=== PATIENT | male | born 1955 | race Caucasian/White ===

== ENCOUNTER 2019-08-18 14:13 | Inpatient (IN) ==
[2019-08-18] MEDS ORDERED: NS 1,000 ML ONE (14:29)
[2019-08-18] MEDS ORDERED: NS 1,000 ML IV ONE (14:49)
[2019-08-18] MEDS ORDERED: PROTONIX IV ONE (14:49)
[2019-08-18] MEDS ORDERED: SODIUM CHLORIDE 0.9% INJ ONE ×3 (14:49→19:48)
[2019-08-18] MEDS ORDERED: ZOFRAN IV ONE (14:51)
--- NOTE | 2019-08-18 14:58 | PROVIDER DOCUMENTATION ---
HPI-General Adult - General Chief Complaint: GI Bleed Stated Complaint: RECTAL BLEEDING Time Seen by Provider: 08/18/19 14:46 Source: patient Allergies/Adverse Reactions: Patient Allergies Allergy/AdvReac Type Severity Reaction Status Date / Time No Known Drug Allergies Allergy Unknown Verified 08/18/19 18:31 - History of Present Illness -Gen Adult Nature of Presenting Problems: 63 year old male presenting to the ED stating he became dizzy last night and layed down on the floor and was too weak to get up today. He was found by family today laying on the floor. The patient denies hitting his head or being on any blood thinners but does have a history of cirrhosis. He endorses coffee ground emesis and dark stools but cannot recall when it started. Review of Systems - Adult - REVIEW OF SYSTEMS - ADULT Constitutional: reports: fatique Eyes: reports: no symptoms reported Ears, Nose, Mouth & Throat: reports: no symptoms reported Cardiovascular: reports: no symptoms reported Respiratory: reports: hemoptysis Gastrointestinal: reports: abdominal pain, hematemesis, nausea, rectal bleeding, vomiting, other (bloating) Genitourinary: reports: no symptoms reported Musculoskeletal: reports: no symptoms reported Integumentary: reports: no symptoms reported Neurological: reports: ataxia, dizziness/vertigo Psychiatric: reports: alcohol/drug dependence (history of alcoholism) Endocrine: reports: no symptoms reported Hematologic/Lymphatic: reports: prolonged bleeding Allergic/Immunologic: reports: no symptoms reported All Other Systems: Reviewed and Negative Past History - Adult - PAST MEDICAL HISTORY-ADULT Review of Records: reports: Old Records Reviewed, Nursing Assessment Review, Medications Reviewed, Social history reviewed & non-contributory. - IMMUNIZATION STATUS Childhood Immunizations: See Nurse Assessment Flu Vaccine: See Nurse Assessment - FAMILY HISTORY Family History: reviewed, not pertinent - SOCIAL HISTORY Smoking: quit greater than 1 year Substance Use: alcohol (former alcoholic) Physical Exam-General - PHYSICAL EXAM-ADULT Initial Vital Signs Reviewed: Yes - CONSTITUTIONAL General Appearance: alert, mild distress - EYES Eyes: negative: scleral icterus - HEAD, EARS, NOSE, MOUTH & THROAT HENMT: other (coffee ground emesis visualized around the patient's mouth). negative: moist mucous membranes (dry mucous membranes) - NECK Neck: non-tender, full range of motion, supple - RESPIRATORY Respiratory: lungs clear, normal breath sounds - CARDIOVASCULAR Cardiovascular: regular rate, rhythm, no murmur. negative: tachycardia - GASTROINTESTINAL (ABDOMEN) Abdominal Exam: distended (Patient appears to have ascites with + fluid wave), hernia (2 large ventral wall hernia's that are both approximately the size of a softball and are non-reducable with some induration on the right side), other (melenotic stool on rectal examination) - MUSCULOSKELETAL Back Exam: normal inspection Extremity: normal range of motion, pelvis stable, swelling (non-pitting edema of the b/l LE's) Peripheral Pulses: radial (R): 2+, radial (L): 2+ - SKIN Integumentary: jaundice (miold) - NEUROLOGIC Neurologic: grossly normal - PSYCHIATRIC Psych/Mental Status: normal mood/affect, oriented x 3 Progress - PLAN OF CARE/RESULTS Progress/Plan/Lab Results: Vital Signs - 8 hr 08/18/19 14:28 Temperature 96.5 F L Pulse Rate 99 H Respiratory Rate 18 Blood Pressure 98/43 O2 Sat by Pulse Oximetry 100 Orders Category Date Time Status Saline Loc NOW Care 08/18/19 14:46 Ordered NPO Diet 08/18/19 14:[address] ABD/PELVIS W/IV CONT ONLY [CT] Stat Exams 08/18/19 14:48 Ordered CBC WITH DIFF [HEME] Stat Lab 08/18/19 14:47 Uncollected CK PROFILE [SP CHEM] Stat Lab 08/18/19 14:48 Ordered COMPREHENSIVE METABOLIC PANEL [CHEM] Stat Lab 08/18/19 14:47 Uncollected LACTATE, PLASMA [CHEM] Stat Lab 08/18/19 14:51 Uncollected LIPASE [CHEM] Stat Lab 08/18/19 14:47 Uncollected OCCULT BLOOD SCREENING [STOOL] Stat Lab 08/18/19 14:51 Uncollected URINALYSIS [URINALYSIS] Stat Lab 08/18/19 14:47 Uncollected 0.9% Sodium Chloride Inj [Ns] 1,000 ml Med 08/18/19 14:29 Discontinued .ROUTE As directed Ns 1000 ml IV Bolus X1 Med 08/18/19 14:49 Ordered 0.9% Sodium Chloride Inj [Ns] 1,000 ml IV 999 mls/hr Ondansetron [Zofran] Med 08/18/19 14:51 Once 4 mg IV NOW ONE Pantoprazole [Protonix] Med 08/18/19 14:49 Once 40 mg IV NOW ONE Sodium Chloride 0.9% Med 08/18/19 14:49 Once 10 ml INJ NOW ONE Abd Pain/OB <20 weeks Stat Oth 08/18/19 14:46 Ordered Result Diagrams: 08/18/19 18:02 08/18/19 14:58 - XRAY 1 XRAY Study: Chest Impression: Normal ( EXAM: CHEST-1 VIEW HISTORY: GIB with Dyspnea TECHNIQUE: Single view COMPARISON: None. FINDINGS: The lungs are well expanded. The heart is not enlarged. The vessels are not distended. There are no infiltrates. No effusion identified. IMPRESSION: Negative exam. Electronically signed by Jd Valladares 08/18/2019 5:35 PM 08/18/19 1735 Interpreting Physician: Jd Valladares MD Dictated Date/Time: 08/18/19 1731 cc: Mark Slater DO; None,PCP) - CT/MRI 1 CT Study: Abdomen Impression: Abnormal (EXAM: CT ABD/PELVIS W/IV CONT ONLY HISTORY: abdominal pain TECHNIQUE: CT abdomen and pelvis with intravenous contrast. COMPAR ISIDORO: None. FINDINGS: There is a small hiatal hernia and there is thickening to the wall of the distal esophagus. The liver is nodular and heterogeneous with multiple small scattered masses and a larger 7.5 cm mass in the right lobe. There is fatty infiltration of the liver. The spleen measures 6.6 x 13.0 x 12.4 cm. There are multiple stones within a contracted gallbladder. Normal pancreas. There is portal venous thrombosis with multiple large varices in the upper left abdomen. Normal adrenal glands and kidneys. No aortic aneurysm. Large amount of abdominal and pelvic ascites. No bowel obstruction. There is a right inguinal hernia and a large right-sided hydrocele. The prostate is not enlarged. The stomach is distended with fluid and debris. IMPRESSION: 1.Cirrhosis and likely hepatocellular carcinoma 2.Portal venous thrombosis 3.Cholelithiasis 4.Distended stomach with a small hiatal hernia and thickening to the wall of the distal esophagus 5.Large right hydrocele This exam was performed using automated exposure control, adjustment of mA or kV according to patient size, and/or use of iterative reconstruction technique. Electronically signed by Jd Valladares 08/18/2019 5:29 PM 08/18/19 9429 Interpreting Physician: Jd Valladares MD Dictated Date/Time: 08/18/19 1723 cc: Mark Slater DO; None,PCP) - CONSULTS/PCP/HOSPITALIST Notification #1 *Consult/PCP/Hospitalist*: Dr. Lowe Time Discussed: 17:10 (Admit to ICU ) Reason/Comments: GIB with symptomatic anemia. Consult Disposition: Admit (s/w Dr. Lowe, recommends c/s general surgery if CT shows ischemic bowel, if not he will plan for colonoscopy in the morning) #2 Consult: Spoke with Lynda Rosen, admit under the care of Dr. Arcos Time Discussed: 17:17 (Admit ICU) Reason/Comments: Shock, GIB, likely ischemic gut Consult Disposition: Admit #3 Consult: Dr. Anderson Time Discussed: 18:44 (Concern for ischemic bowel) Reason/Comments: Concern for ischemic bowel Consult Disposition: other (Will further evaluate the patient for concern of ischemic bowel once admitted to the hospital) Departure - Departure Date of Disposition Decision: 08/18/19 Time of Disposition Decision: 18:16 (Admit ICU) DIAGNOSIS: Shock, Lactic acidosis, Abdominal hernia, Symptomatic anemia, Hyperkalemia, Neutrophilic leukocytosis, PVT (portal vein thrombosis), Lower gastrointestinal bleed Cirrhosis Qualifiers: Hepatic cirrhosis type: unspecified hepatic cirrhosis Ascites presence: without ascites Qualified Code(s): K74.60 - Unspecified cirrhosis of liver Disposition: ADMITTED INPATIENT 09 Certified Medical Emergency: Emergent Condition: Critical Referrals and Follow-Ups: None,PCP [Primary Care Provider] - - Critical Care Note This patient required my direct & personal management of CC.: Yes Total Time (mins): 65 Critical Care Statement: This patient required my direct personal management to treat or rule out processes, the absence of which, could potentiallly result in sudden, clinically significant life or limb threatening deterioration. Attestation - Physician/ PHIL Attestation Patient care was provided by Advanced Practice Provider:: No The physician spent face to face time with patient:: Yes Advanced Practice Provider documentation review:: Supervising physician onsite and consulted in the evaluation and care of this patient. The physician did have a face to face encounter with the patient.
[2019-08-18 15:31] LABS: BASO# 0.04 X1000 (0.0-0.2); BASO% 0.2 % (0.0-0.8); EOS# 0.02 X1000 (0.0-0.7); EOS% 0.1 % (0.0-10.0); HEMATOCRIT 19.5 % (42.0-52.0); IMM GRAN# 0.56 X1000 (0.0-0.04); IMM GRAN% 2.7 % (0.0-0.5); LYMPH# 0.79 X1000 (1.2-3.4); LYMPH% 3.8 % (20.5-51.1); MCH 29.4 PG (27-31); MCHC 30.3 g/dL (33-37); MONO% 7.6 % (1.7-9.3); MPV 9.2 FL (7.4-10.4); NEUT# 17.97 X1000 (1.4-6.5); NEUT% 85.6 % (42.2-75.2); PLT 312 X1000 (130-400); RBC 2.01 XMIL (4.7-6.1); WBC 20.98 X1000 (4.8-10.8)
[2019-08-18 15:34] LABS: HEMOGLOBIN 5.9 g/dL (14.0-18.0)
[2019-08-18 15:38] LABS: INR 3.92; PROTIME 39.6 Seconds (11.0-16.0); PTT 39.4 Seconds (22.3-41.8)
[2019-08-18 15:51] LABS: ESTIMATED GFR > 60
[2019-08-18 16:07] LABS: AGAP 24; ALB/GLOB RATIO 0.7; ALBUMIN 1.9 g/dL (3.5-5.0); ALKALINE PHOSPHATASE 141 U/L (32-122); BUN 46 mg/dL (8-22); CALCIUM 8.1 mg/dL (8.8-10.2); CHLORIDE 108 mmol/L (98-107); COSMO 295; CREATININE 1.2 mg/dL (0.7-1.2); GLUCOSE 140 mg/dL (70-104); GOT 168 U/L (10-34); GPT 88 U/L (10-44); LIPASE 46 U/L (13-60); SODIUM 141 mmol/L (136-145); TCO2 9 mmol/L (25-35); TOTAL BILIRUBIN 1.42 mg/dL (0.20-1.00); TOTAL PROTEIN 4.8 g/dL (6.3-8.3)
[2019-08-18] MEDS ORDERED: SODIUM CHLORIDE IV ONE (16:14)
[2019-08-18 16:15] LABS: ANISOCYTOSIS 1+; BANDS 6 % (0-1); LARGE PLATELETS OCCASIONAL; LYMPHS 1 % (21-51); MONO 4 % (1-9); SEGS 89 % (42-75)
[2019-08-18] MEDS ORDERED: ATIVAN IV ONE (16:36)
[2019-08-18] MEDS ORDERED: SANDOSTATIN 500 MICROGM in D5W 100 ML IV STA (17:04)
--- NOTE | 2019-08-18 17:31 | Diag Imaging Result Doc PS360 ---
EXAM: CT ABD/PELVIS W/IV CONT ONLY HISTORY: abdominal pain TECHNIQUE: CT abdomen and pelvis with intravenous contrast. COMPARISON: None. FINDINGS: There is a small hiatal hernia and there is thickening to the wall of the distal esophagus. The liver is nodular and heterogeneous with multiple small scattered masses and a larger 7.5 cm mass in the right lobe. There is fatty infiltration of the liver. The spleen measures 6.6 x 13.0 x 12.4 cm. There are multiple stones within a contracted gallbladder. Normal pancreas. There is portal venous thrombosis with multiple large varices in the upper left abdomen. Normal adrenal glands and kidneys. No aortic aneurysm. Large amount of abdominal and pelvic ascites. No bowel obstruction. There is a right inguinal hernia and a large right-sided hydrocele. The prostate is not enlarged. The stomach is distended with fluid and debris. IMPRESSION: 1.Cirrhosis and likely hepatocellular carcinoma 2.Portal venous thrombosis 3.Cholelithiasis 4.Distended stomach with a small hiatal hernia and thickening to the wall of the distal esophagus 5.Large right hydrocele This exam was performed using automated exposure control, adjustment of mA or kV according to patient size, and/or use of iterative reconstruction technique. Electronically signed by Jd Valladares 08/18/2019 5:29 PM
--- NOTE | 2019-08-18 17:37 | Diag Imaging Result Doc PS360 ---
EXAM: CHEST-1 VIEW HISTORY: GIB with Dyspnea TECHNIQUE: Single view COMPARISON: None. FINDINGS: The lungs are well expanded. The heart is not enlarged. The vessels are not distended. There are no infiltrates. No effusion identified. IMPRESSION: Negative exam. Electronically signed by Jd Valladares 08/18/2019 5:35 PM
[2019-08-18] MEDS ORDERED: ZOSYN 3.375 GM in NS 50 ML IV SCH (18:15)
[2019-08-18] MEDS ORDERED: ALBUTEROL 0.5% INH CONC FOR HYPERKALEMIA INH ONE (18:16)
[2019-08-18 18:19] LABS: ALLEN TEST NO; BLOOD TYPE ARTERIAL; HCO3-(ACT) 9.4 mmoll (20.0-26.0); METHB 0.7 % (0.0-1.5); O2(CT) 7.7 mL/dL (15.0-23.0); O2HB 97.5 % (95.0-99.0); PO2(98.6) 120 mmHg (60-100); SAMPLE BLOOD; SAO2 100.8 % (95.0-100.0); THB 5.4 g/dL (11.5-17.4)
[2019-08-18] MEDS ORDERED: HUMULIN R SUBQ ONE (18:19)
[2019-08-18] MEDS ORDERED: D50W SYRINGE IV ONE (18:20)
[2019-08-18 18:22] LABS: MODALITY CANNULA; PCO2(98.6) 16 mmHg (35-45)
[2019-08-18 18:28] LABS: BASO# 0.07 X1000 (0.0-0.2); BASO% 0.3 % (0.0-0.8); EOS# 0.03 X1000 (0.0-0.7); EOS% 0.1 % (0.0-10.0); IMM GRAN# 0.75 X1000 (0.0-0.04); IMM GRAN% 3.5 % (0.0-0.5); LYMPH% 6.1 % (20.5-51.1); MONO# 1.23 X1000 (0.11-0.59); MONO% 5.7 % (1.7-9.3); MPV 9.2 FL (7.4-10.4); NEUT# 18.08 X1000 (1.4-6.5); NEUT% 84.3 % (42.2-75.2); RBC 1.74 XMIL (4.7-6.1); WBC 21.46 X1000 (4.8-10.8)
[2019-08-18 18:29] LABS: HEMATOCRIT 17.6 % (42.0-52.0); MCH 30.5 PG (27-31); MCHC 30.1 g/dL (33-37); MCV 101.1 FL (81-99); PLT 268 X1000 (130-400); RDW 18.6 % (11.5-14.5)
[2019-08-18 18:31] LABS: HEMOGLOBIN 5.3 g/dL (14.0-18.0)
[2019-08-18 18:42] LABS: ESTIMATED GFR > 60
[2019-08-18 18:43] LABS: AGAP 26; ALB/GLOB RATIO 0.7; ALBUMIN 1.7 g/dL (3.5-5.0); ALKALINE PHOSPHATASE 125 U/L (32-122); BUN 47 mg/dL (8-22); CALCIUM 7.9 mg/dL (8.8-10.2); CHLORIDE 109 mmol/L (98-107); COSMO 297; CREATININE 1.2 mg/dL (0.7-1.2); GLUCOSE 124 mg/dL (70-104); GOT 247 U/L (10-34); GPT 130 U/L (10-44); POTASSIUM 5.9 mmol/L (3.5-5.1); SODIUM 142 mmol/L (136-145); TCO2 7 mmol/L (25-35); TOTAL BILIRUBIN 1.29 mg/dL (0.20-1.00); TOTAL PROTEIN 4.1 g/dL (6.3-8.3)
[2019-08-18] MEDS ORDERED: NS 1,000 ML IV SCH (19:30)
[2019-08-18] MEDS ORDERED: PROTONIX IV SCH (21:00)
[2019-08-18] MEDS ORDERED: FENTANYL ONE (21:49)
[2019-08-18] MEDS ORDERED: FENTANYL IV ONE (21:49)
[2019-08-18] MEDS: ZOFRAN IV PRN (23:04)
--- NOTE | 2019-08-19 01:11 | HISTORY AND PHYSICAL ---
PRIMARY CARE PROVIDER: [facility]. CHIEF COMPLAINT: Patient found down on floor by family surrounded with dark emesis as well as covered in dark stools. They also report a trash can by the bedside full with old blood. HISTORY OF PRESENT ILLNESS: Mr. Bacon is a 63-year-old gentleman whose mother at the bedside is not really claiming that he has much past medical history besides some abdominal surgeries for his hernias; however, he has family members at bedside, who stated that he used to be a profound alcoholic as well as IV drug abuser. All of his medications that are with him show signs that he does have issues with his liver. Apparently when he first came in he was complaining of some abdominal pain. It was more at the right side of his ventral hernia. He has since that time been given some Ativan and he is not really answering any questions. Further workup in the ED revealed a white count of 20, INR of 3, hemoglobin and hematocrit of 5 and 19, platelet count of 312,000. Potassium of 6, AST of 168, ALT of 88, alkaline phosphatase of 140, and a plasma lactate of 17.5. Abdomen and pelvis CT shows cirrhosis and likely hepatocellular carcinoma; portal vein thrombosis; cholelithiasis; distended stomach with small hiatal hernia and thickening to the wall of the distal esophagus; large right hydrocele. Stools were heme-positive. He will be transfused with 2 units of FFP, 2 units of PRBCs. We are giving him a hypokalemic treatment. He has been given a dose of IV Protonix. We will continue b.i.d. He has also been started on an octreotide drip, and Zosyn for the possibility of an ischemic bowel secondary to portal vein thrombosis, given his high lactate level and no other source of infection has been identified. Consult for GI and General Surgery. He will be moved to the ICU, monitored closely. PAST MEDICAL HISTORY: Cirrhosis of the liver, possibly hepatitis C. He also has evidence of ventral wall hernia. Alcohol and IV drug use in the past as well as tobacco abuse. PAST SURGICAL HISTORY: Hernia repair with mesh, appendectomy. HOME MEDICATIONS: Lactulose, Lasix, gabapentin, spironolactone. FAMILY HISTORY: Mother with hypothyroidism. Father with MD, years ago. SOCIAL HISTORY: Mother at bedside is denying that he had any issues with alcohol or drug abuse; however, he does have 2 other family members at bedside who are stating that he used to heavily abuse alcohol as well as any and every type of IV drug abuse. They state that his mother has always been in denial. He gets his healthcare in [place]. They report he has a home in [place] as well as a brother who lives in [place]. The patient is currently at his mother's house because he has been too weak to live on his own. All of his medication bottles are from [place]. The mother does report that he gets his "belly drain" from [place]. REVIEW OF SYSTEMS: Hard to obtain secondary to the patient being somewhat sedated. He was given Ativan. He was not really answering any questions. He did know he was in [place]. He did know his name. He did not know the correct year. He thought it was 2000. He could not tell us the correct month. He could not really tell us anything about his health history or why he was brought to the hospital. PHYSICAL EXAMINATION: VITAL SIGNS: Initial temperature was 96.5 degrees, heart rate 99, respirations 18, blood pressure was 98/43, O2 is 100% on 4 L nasal cannula. GENERAL: Mr. Bacon is an ill-appearing 63-year-old male who is lying on his right side in the bed, covered up in blankets. HEENT: Atraumatic, normocephalic. PERRL. Mucous membranes are dry. NECK: Supple. Trachea midline. CARDIOVASCULAR: S1, S2 appreciated. No murmurs, gallops or rubs noted. RESPIRATORY: Lung sounds clear. GASTROINTESTINAL: Distended. There are large ventral hernias present, some type of fluid. Unsure if there is fluid around the hernias, as well as ascites. EXTREMITIES: Generalized lower extremity edema. Bilateral pedal pulses. NEUROLOGIC: Again, the patient knows he is in [place]. He knows his name; however, he cannot tell us the correct year or the correct month, why he came to the hospital or what his history was. DIAGNOSTIC DATA: Abdomen and pelvis CT: Cirrhosis and likely hepatocellular carcinoma; portal vein thrombosis; cholelithiasis; distended stomach with small hiatal hernia and thickening to the wall of the distal esophagus; large right hydrocele. Chest x-ray was negative. LABORATORY DATA: White count of 20, hemoglobin and hematocrit of 5 and 19, platelet count of 312,000. PT of 39, INR 3.92. Chemistry: Sodium 141, potassium 6.0, anion gap of 24, BUN 46, creatinine 1.2, blood glucose is 140, total bilirubin 1.42, AST 168, ALT 88, alkaline phosphatase 141, albumin 1.9. Plasma lactate is 17.5. ASSESSMENT AND PLAN: 1. Gastrointestinal bleed with symptomatic acute blood loss anemia. The patient will be transfused with 2 units of packed red blood cells and fresh frozen plasma. Appears to have upper and lower gastrointestinal bleed. According to family, he was found with coffee-ground emesis as well as evidence of black stools, which was well documented by the emergency department staff. I believe they have already spoken with Dr. Lowe and may plan for colonoscopy in the a.m. if no findings of ischemic gut. 2. severe sepsis. Profound lactic acidosis with high anion gap, possibly from an ischemic gut. He does have portal vein thrombosis which is likely the underlying cause.. We have consulted Dr. Anderosn with General Surgery to take a look at his imaging. We have not located any other sources of infection. We will empirically cover him with Zosyn. 3. Hyperkalemia. His been given hypokalemic treatment. 4. Large abdominal hernia. 5. Cirrhosis of the liver with presumed hepatitis C. We will send up hepatitis panel. 6. Probable hepatocellular carcinoma. We will see if we can get his gastrointestinal bleed under control and consult Oncology on Tuesday when we have him more stabilized. We will watch him closely in the intensive care unit. 7. Further recommendations to follow physician evaluation, laboratory and diagnostic data. Dictated by BRIANNA Shaw for Osiel Arcos MD cc: MD Jacek Chowdhury MD Patient presented with hematemesis and found to have hepatocellular carcinoma, portal vein thrombosis, and likely intestinal ischemia with necrosis leading to profound lactic acidosis and severe sepsis. unable to anticoagulate due to likely variceal bleed and acute blood loss anemia. discussed the case with surgery but options are quite limited and his prognosis is likely grim. will discuss further with family and patient if possible but he was given ativan for comfort not long ago and was quite somnolent at the time of my exam. [facility] HOSPITALJustin
--- NOTE | 2019-08-19 07:25 | GENERAL SURGERY CONSULTATION ---
DATE: 08/18/2019 SURGEON CONSULTED: Dr. Nolan Anderson. REQUESTING PHYSICIANS: Dr. Osiel Acros, Dr. Dayron Lowe, and Mark Slater. REASON FOR CONSULTATION: Portal vein thrombosis, questionable ischemic gut. HISTORY OF PRESENT ILLNESS: This is a 63-year-old male who is a very poor historian, accompanied by his mother, his aunt, and his cousin, who also are not very good historians, who has known liver cirrhosis [*] PAST MEDICAL HISTORY: Other past medical history is gleaned. His mother reports diabetes, but otherwise denies any other medical history. There is a report of hepatitis C infection, although the family and the patient do not seem to be aware of that. PAST SURGICAL HISTORY: They report the lower abdominal hernia repair. HOME MEDICATIONS: He did come with several prescription vials, including spironolactone, Lasix, and lactulose. SOCIAL HISTORY: Reportedly quit smoking greater than a year ago. Discussed his alcohol use above in HPI, as well as his illicit drug use. FAMILY HISTORY: Reviewed and not pertinent. REVIEW OF SYSTEMS: Unobtainable. ALLERGIES: No known drug allergies. PHYSICAL EXAMINATION: Vital Signs: Temperature 97, pulse 109, respirations 18, blood pressure 83/45, O2 saturation 100%. General: This is a somnolent, chronically ill-appearing male in mild distress. He is arousable, but quickly seems to become somnolent and nonverbal. He can answer a few questions, but does also seem confused at times. HEENT: Normocephalic, atraumatic. Extraocular muscles intact. Pupils are equal, round, and reactive to light. Sclerae are anicteric. Mucous membranes dry. Neck: Supple. No thyromegaly. Lymphatic: No cervical, supraclavicular, or periumbilical lymph nodes appreciated. CV: Tachycardic and regular. Respiratory: Bilateral breath sounds. He is tachypneic. GI: Protuberant, soft, mildly tender diffusely. No rebound or guarding. No organomegaly appreciated. He does have a fluid wave. He has a large ventral hernia that appears to be full of fluid, with some chronic color change to the overlying skin, which is fairly thin, but not leaking. His hernia is not particularly reducible. I do not palpate any bowel in the hernia sac. Extremities: Thin with chronic muscle wasting. Musculoskeletal: He does move all his extremities equally it appears. Skin: Warm and dry. No rash. LABORATORY DATA: Sodium 142, potassium 5.9, chloride 109, CO2 of 7, BUN 47, creatinine 1.2, glucose 124. Total bilirubin 1.29, AST 247, ALT 130, alkaline phosphatase 125, albumin 1.7. Plasma lactate 20.7. White blood cell count 21,000, hemoglobin 5.3, hematocrit 17.6, platelet count 268,000. INR 3.9. Serum alcohol level 0. IMAGING: Abdomen and pelvis CT scan was reviewed by me as well as the radiologist's interpretation. The patient has large-volume abdominal ascites with a cirrhotic liver and multiple masses throughout the liver concerning for hepatocellular carcinoma. There is portal venous thrombosis. There are large varices in the left upper abdomen. There is a distended stomach with some thickening to the wall of the distal esophagus, cholelithiasis, a large right hydrocele with right inguinal hernia. He has a large ventral hernia that appears to only contain ascites. ASSESSMENT AND PLAN: A 63-year-old male who is really in a grim situation secondary to his underlying severe liver disease and likely hepatocellular carcinoma, now with upper and lower gastrointestinal bleed, I would think likely due to esophageal varices. He is very anemic. I have discussed this situation with the family frankly, and he is not an operative candidate for any kind of exploratory surgery. I have recommended to them comfort measures and hospice consult, and discussed this with his hospitalist physician as well. Thank you for the consultation. If I can be of any further assistance, I would be happy to help as I can. cc: Nolan Anderson MD
[2019-08-19] MEDS: ZOFRAN IV PRN (08:15)
[2019-08-19] MEDS: ATIVAN IV PRN ×3 (08:16→17:55)
--- NOTE | 2019-08-19 08:29 | PROGRESS NOTE ---
DATE: 08/19/2019 TIME: 0. SUBJECTIVE: Mr. Bacon is a 63-year-old, male, who was admitted earlier in the evening with a GI bleed, symptomatic anemia, lactic acidosis with high anion gap, cirrhosis of the liver, and probable hepatocellular carcinoma. Dr. Anderson was consulted with Surgery as well. Unfortunately, given the patient's condition and his prognosis, he is not a surgical candidate at this time. We did discuss with the patient and the patient's family, who included his mother, who is his next of kin. Her name is Emi Saldana. We did discuss the patient's current medical problems, current medical condition, and that he is very critically sick and that his prognosis unfortunately is very poor, and that he may not survive his illness. Given this, the patient as well as the patient's family at this time did decide to make the patient a DO NOT RESUSCITATE level 1. They also wanted to discontinue all aggressive treatment measures, and did want to make the patient comfortable and treat his pain. We did discuss this with his mother, Emi Saldana, who is his next of kin, as well as the patient is alert and oriented to person, place, and time, we did discuss this with him as well. He did state that he did not want intubation, chest compressions, emergency cardiac medicines, or defibrillation. He did not want us to aggressively treat his current illness, and did state that he wanted to be comfortable and for us to treat his pain. At this time, we have placed orders for DO NOT RESUSCITATE level 1. We have changed the patient to a private room on the medical floor. We have discontinued all aggressive treatment orders, and have placed p.r.n. pain medication, antiemetics, and anxiety medicines. Dictated by BRIANNA Pepe for Mariely Guy MD cc: Mariely Guy MD
[2019-08-19] MEDS ORDERED: VITAMIN K 10 MG in NS 50 ML IV SCH (09:00)
[2019-08-19 12:06] VITALS: BP 114/48
[2019-08-19] MEDS: FENTANYL IV PRN ×2 (13:48→17:04)
--- NOTE | 2019-08-19 15:50 | GASTROENTEROLOGY CONSULTATION ---
DATE: 08/19/2019 REASON FOR CONSULTATION: Gastrointestinal bleed and history of liver cirrhosis. HISTORY OF PRESENT ILLNESS: Mr. Bacon is a 63-year-old male, who was admitted to the hospital through the emergency room for symptoms of weakness, abdominal pain, and vomiting coffee-grounds and passing melena. In the ER he was noted to have hemoglobin of 5.9, he was noted to have lactic acidosis with a lactate of 17.5. He had a CT scan of the abdomen and pelvis done which showed evidence of portal vein thrombosis, cholelithiasis, distended stomach with small hiatal hernia and thickening to the wall of the distal esophagus, large right hydrocele and multiple lesions in the liver suggesting hepatocellular carcinoma. His stool tested heme positive. In the ER he was given resuscitation in the form of IV fluids, FFP in packed red blood cells. He had a history of chronic liver cirrhosis. Based on the records he had a history of alcoholism and IV drug abuse. I saw the patient, and spoke to him but most history obtained from the patient's records. The patient was only able to answer some questions. Because of lactic acidosis we also consulted Dr. Anderson for possibility of ischemic bowel. We appreciate his help. PAST MEDICAL HISTORY: 1. Cirrhosis of liver. 2. History of chronic hepatitis C. 3. History of alcoholism. 4. Abdominal wall hernia. 5. Alcohol abuse. 6. IV drug abuse. 7. Tobacco abuse. PAST SURGICAL HISTORY: Hernia repair with mesh placement. Appendectomy. MEDICATIONS AT HOME: Lasix, spironolactone, gabapentin, lactulose. FAMILY HISTORY: Mother with hypothyroidism. Father with [facility] years. SOCIAL HISTORY: The patient has history of alcohol abuse and drug abuse. Per the patient's family he has recently moved from [place] to [place] to live with his mother as he is the getting too weak to live on his own. He does have history of ascites for which he used to get a paracentesis done and [place]. REVIEW OF SYSTEMS: Obtained. The patient could not answer all my questions. He did complain of abdominal pain, nausea, vomiting and dark stools. He appeared to be mildly confused. MEDICATIONS IN THE HOSPITAL: IV fluids, IV Protonix, Sandostatin drip. PHYSICAL EXAMINATION: Temperature 96 degrees, pulse rate of 104, respiratory rate 18, blood pressure of 70/44. Saturating 100% on room air 2 L 100% room air. Body weight of 177 pounds 14.4 ounces. BMI 25.5 kg/m2. General: Thinly built, lying in bed in no acute distress. HEENT: Positive pallor. Mild icterus. Neck: Supple. Abdomen: Distended. Discomfort in the periumbilical region. Protuberant abdomen. No guarding or rebound. Positive ascites. Large ventral hernia is noted. Extremities: No cyanosis, clubbing. Some chronic muscle wasting is noted. Neurologic: He was awake and was able to answer a few questions but was oriented to his name only. LABS: Hemoglobin and hematocrit of 5.9 and 19.5, white count of 20.98, platelet count of 312,000. MCV of 97, INR of 3.9, PTT of 39.6, PTT 39.4 ABG showing pH of 7.20, pCO2 16, PO2 120, lactate of 17.4, this is on 28% FiO2. Sodium 142, potassium 5.9, chloride 109, bicarb of 7, anion gap of 26, BUN of 47, creatinine 1.2, glucose of 124, calcium is 7.9, magnesium 2.0 total bilirubin is 1.29, AST 247, ALT 130, alkaline phosphatase 125, ammonia 118, total protein 4.1, albumin 1.7, and lactate went up to 20.7. Tox screen, alcohol level was none detected. CT scan of the abdomen and pelvis done showed cirrhosis and likely hepatocellular carcinoma. Portal vein thrombosis. Cholelithiasis. Distended stomach with small hiatal hernia. Thickening to the wall of the distal esophagus. Large right hydrocele. IMPRESSION AND PLAN: 1. Gastrointestinal bleed. 2. Liver cirrhosis. 3. Abnormal CT scan showing evidence of possible hepatocellular carcinoma and liver cirrhosis. 4. Cholelithiasis. 5. Hiatal hernia. 6. Likely distal esophagitis. 7. Nausea and vomiting. 8. Coffee-ground emesis. 9. Profound lactic acidosis. 10. Large abdominal wall hernia. 11. Resume hepatitis C. 12. History of alcoholism and IV drug abuse. RECOMMENDATIONS: We will perform aggressive resuscitation. He will get IV fluids. He will get FFP. He will get a blood transfusion. I will involve general surgeon to evaluate for ischemic bowel. Will correct the INR with vitamin K and FFP. We will check AFP we will watch him closely. We will decide about possible endoscopy based on the clinical course. We will follow along. The above plans were discussed with the patient's nurse as well as the emergency room team, I could not find any family at that time at bedside. Please call us with any further questions. cc: Dayron Lowe MD MTDD
--- NOTE | 2019-08-19 18:23 | PROGRESS NOTE ---
DATE: 08/19/2019 INTERVAL HISTORY: After discussion with Surgery and others last night, the patient and family elected to go comfort care. He was reportedly awake and talking this morning, but was pretty encephalopathic time of my exam. His only request earlier this morning was water. Clarified with nursing that the patient can have whatever by mouth he desires at this point. Discussed the situation with family. They remain on board with comfort care. Discussed that we will see what he does and what medication he requires to remain comfortable today and it looks like he is going to have a fairly rapid downhill course and/or require large amounts of IV medicines to maintain comfort, then may keep him here. Otherwise, we will try to get him set up with hospice to go home with. The patient has cirrhosis with likely new diagnosis of hepatocellular carcinoma, portal vein thrombosis, likely mesenteric ischemia and necrosis with severe lactic acidosis, severe sepsis. Blood pressure is surprisingly okay today so far. But on exam, patient is markedly encephalopathic with significant distended, although nontender, abdomen, decreased bowel sounds. Heart is regular rate and rhythm. Extremities only minimal swelling. The patient withdraws to noxious stimuli, but does not follow commands or even wake up fully with me at this point. Continue comfort measures and monitor.
--- NOTE | 2019-08-22 12:33 | DISCHARGE SUMMARY ---
ADMISSION DATE: 08/18/2019 DISCHARGE DATE: 08/19/2019 HOSPITAL COURSE: The patient presented initially with complaints of hematemesis and melena. He was found to be profoundly anemic with a hemoglobin of 5.9 initially. He was transfused 2 units, and hemoglobin actually went down to 5.3. During that process, CT of his belly was obtained, which showed cirrhosis, likely diffuse hepatocellular carcinoma, and portal venous thrombosis. He was also found to have a markedly elevated lactate at 17.4, and was thought to have bowel ischemia related to his portal venous thrombosis. Once these issues were identified, his poor prognosis was discussed with the patient and his family, and they elected to go comfort care. The patient was given Ativan and IV fentanyl as needed. He late on 08/19/2019. DISCHARGE DIAGNOSES: 1. Likely intestinal ischemia and necrosis 2. Acute blood loss anemia. 3. Gastrointestinal bleed. 4. Hepatocellular carcinoma. 5. Cirrhosis. 6. Severe shock, likely septic. 7. Portal vein thrombosis. DISCHARGE DIET: None. Patient . DISCHARGE MEDICATIONS: None. Patient . FOLLOWUP AND PLAN: None. Patient . [facility]
== END 2019-08-19 20:20 | disposition expired | DRG 871 ==
LOC: SUPCPDRO → ED 14:13 → EDIPHOLD 18:38 → 4N 22:40
PROVIDERS: ATTEND Internal Medicine